=== PATIENT | female | born 1960 | race Asian ===

== ENCOUNTER 2025-08-14 13:50 | Outpatient (CLI) | payer OTHER, SELFPAY | END 2025-08-14 13:51 | disposition home or self-care (01) | LOC: AMB 09-21 07:56 | PROVIDERS: Visit Provider Emergency Medicine | DX: S89.92XA Unspecified injury of left lower leg, initial encounter (principal); V69.40XA Driver of heavy transport vehicle injured in collision with unspecified motor vehicles in traffic accident, initial encounter; Y92.411 Interstate highway as the place of occurrence of the external cause | CPT/HCPCS: A0425; A0433 ==